=== PATIENT | female | born 1990 | race Caucasian/White ===

== ENCOUNTER → 2018-08-18 | Outpatient (CLI) | payer BC ==
--- NOTE | 2018-08-18 17:37 | US ---
EXAMINATION TYPE: US transvaginal DATE OF EXAM: 08/18/2018 COMPARISON: US 05/23/2016 CLINICAL HISTORY: Bloating. Patient states she had a myomectomy to remove a fibroid from her uterus a bout 1-2 years ago TECHNIQUE: . Transvaginal sonographic images of the pelvis were acquired. Date of LMP: About one month ago EXAM MEASUREMENTS: Uterus: 7.1 x 3.3 x 4.2 cm Endometrial Stripe: 1.0 cm Right Ovary: 4.3 x 2.2 x 2.8 cm Left Ovary: 2.4 x 1.7 x 1.6 cm 1. Uterus: Anteverted wnl 2. Endometrium: wnl 3. Right Ovary: Multiple cystic areas visualized. 1. Complex area visualized measuring 1.8 x 1.6 x 1 .1 cm. 2. Simple cyst visualized measuring 2.0 x 1.7 x 2.2 cm 4. Left Ovary: wnl 5. Bilateral Adnexa: Small amount of free fluid visualized in the bilateral adnexa 6. Posterior cul-de-sac: Small amount of free fluid visualized. IMPRESSION: Tiny amount of free fluid in the cul-de-sac. Multiple right ovarian cysts. Normal uterus.
== END | disposition home or self-care (01) ==
LOC: RADUSWWP 17:06
PROVIDERS: ATTEND Family Medicine
DX: N83.201 Unspecified ovarian cyst, right side (principal)
CPT/HCPCS: 76830